=== PATIENT | female | born 1985 | race African-American/Black ===

== ENCOUNTER 2021-11-19 14:30 | Inpatient (IN) ==
[2021-11-19 14:35] VITALS: BMI 34.4
--- NOTE | 2021-11-19 15:27 | DR.URIAD ---
HPI Time Seen Time Seen by Provider: 11/19/21 15:12 PCP Primary Care Physician: KEVIN HPI Comment HPI Comment: PATIENT IS 35YR OLD FEMALE IN ER WITH FEVER, COUGH, CONGESTION, BODYACHES, SORE THROAT CHILLS FOR 2 DAYS. WORSE TODAY. PATIENT IS WEAK AND FATI LEONID. HAVING 8/10 GENERALIZED PAIN. Complaint Chief Complaint Doctors Comments: FEVER, COUGH, CHILLS, CONGESTION, SORE THROAT AND BODYACHES TIMES 2 DAYS. Chief Complaint:: PT C/O HEADACHE, BODYACHES, FEVER, COUGH, & CHILLS X2 DAYS. COVID-19 Coronavirus risk:travel/contact w/high risk person: No Has patient experienced Coronavirus symptoms: No Reviewed Nurses Notes Reviewed: Yes Source History Provided: Patient Mode of Arrival Mode of Arrival: Ambulatory Timing Onset of Chief Complaint: 11/17/21 Context Recent Treated Infections: None History of Respiratory: None Quality Quality of Cough: Productive and Yellow Rhinorrhea: Clear Shortness of Breath: Moderate Associated Signs and Symptoms Other Signs and Symptoms: Chills, Cough, Fever, Myalgias, Nasal Symptoms, Shortness of Breath, Sore Throat and URI Other History Other History: HTN. PMH PMH Past Medical History: Yes Past Medical History: Hypertension Past Surgical History: Yes Surgical History: Other Family History History of Family Medical Conditions: Yes Family Medical History: Hypertension Social History Do you use any recreational Drugs:: No Travel Risk Coronavirus risk:travel/contact w/high risk person: No Has patient experienced Coronavirus symptoms: No Infectious screening Have you traveled outside the country in the last 6 months?: No Isolation: Droplet ROS Review of Systems Constitutional: See HPI, Fever, Weakness and Fatigue Eyes: No Symptoms Reported and See HPI ENTM: See HPI, Nose Discharge, Nose Congestion and Throat Pain Respiratoy: See HPI, Moist Cough and Short of Breath; negative Wheezing Cardiovascular: No Symptoms Reported and See HPI; negative Chest Pain Gastrointestinal/Abdominal: No Symptoms Reported and See HPI; negative Abdominal Pain, Diarrhea and Vomiting Genitourinary: No Symptoms Reported and See HPI; negative Dysuria, Frequency and Hematuria Neurological: See HPI, Headache and Weakness; negative Dizziness Musculoskeletal: See HPI and Muscle Pain Integumentary: No Symptoms Reported and See HPI; negative Rash and Juandice Hematologic/Lymphatic: No Symptoms Reported and See HPI; negative Easy Bruising Endocrine: No Symptoms Reported and See HPI; negative Increased Thirst and Increased Urine Psychiatric: No Symptoms Reported and See HPI All Other Systems: Reviewed and Negative PE Vital Signs Vitals: Temperature 98.5 F Pulse Rate 87 Respiratory Rate 19 Blood Pressure 216/103 O2 Sat by Pulse Oximetry 99 General Limitations: No Limitations General Appearance: Alert and In No Apparent Distress Head Head Exam: Normal Inspection Eyes Eye exam: Normal Appearance; negative Scleral Icterus and Conjunctival Injection ENT ENT Exam: Normal Exam External Ear Exam: Normal External Inspection TM/Canal Exam: Bilateral: Normal Nose Exam: Normal Nose Exam Nasal Speculum Exam: Bilateral: Normal Mouth Exam: Normal Inspection Throat Exam: Normal Inspection Neck Neck Exam: Normal Inspection and Trachea Midline; negative Tenderness Chest Chest Inspection: Normal Inspection and Symmetric Chest Wall Rise; negative T enderness Respiratory Respiratory Exam: Normal Lung Sounds Bilat; negative Accessory Muscle Use, Chest Wall Tenderness and Respiratory Distress Respiratory Exam: Bilateral: Rhonchi and Lower: Rhonchi Cardiovascular Cardiovascular Exam: Regular Rate, Normal Rhythm and Normal Heart Sounds; negat gita Systolic Murmur and Diastolic Murmur Abdominal Exam Abdominal Exam: Normal Inspection, Normal Bowel Sounds and Soft; negative Tenderness Extremeties Extremities Exam: Normal Inspection; negative Normal Capillary Refill Back Back Exam: Normal Inspection; negative (R) CVA Tenderness and (L) CVA Tenderness Neurologic Neurological Exam: Alert and Oriented X3; negative CN II-XII Intact and Motor Sensory Deficit Psychiatric Psychiatric Exam: Normal Affect and Normal Mood Skin Skin Exam: Warm, Dry, Intact and Normal Color MDM Differential Diagnosis Differential Diagnosis: Influenza A, Influenza B, Otitis media, Streptococcal pharyngitis, Viral pharyngitis, Pneumonia, Sinsusitis and URI COURSE Treatment Treatment: SEE ORDERS. Consultation Consultation Comments: DISCUSSED PATIENT WITH DR. GENAO. HE WILL ADMIT PATIENT. Education/Counseling Education/Counseling: Patient and Family ROR Labs Reviewed Laboratory Results Reviewed?: Yes Result Diagrams: 11/20/21 07:56 11/20/21 07:56 Laboratory: WBC 6.6 X10^3/uL (3.6-10.0) 11/19/21 15:49 RBC 2.91 X10^6/uL (3.5-5.4) L 11/19/21 15:49 Hgb 6.2 g/dL (12.0-16.0) L* 11/19/21 15:49 Hct 20.1 % (36.0-47.0) L 11/19/21 15:49 MCV 69.2 fL (80.0-100.0) L 11/19/21 15:49 MCH 21.4 pg (27.0-34.0) L 11/19/21 15:49 MCHC 30.9 g/dL (33.0-35.0) L 11/19/21 15:49 RDW 35.2 % (11.6-16.5) H 11/19/21 15:49 Plt Count 337 X10^3/uL (150.0-450.0) 11/19/21 15:49 Plt Count Comment Adequate (ADEQUATE) 11/19/21 15:49 MPV 8.4 fL (7.4-11.0) 11/19/21 15:49 Neut % (Auto) 55.4 % (42.0-75.0) 11/19/21 15:49 Lymph % (Auto) 35.5 % (21.0-51.0) 11/19/21 15:49 Motley % (Auto) 7.2 % (0.0-13.0) 11/19/21 15:49 Eos % (Auto) 1.3 % (0.9-2.9) 11/19/21 15:49 Baso % (Auto) 0.6 % (0.2-1.0) 11/19/21 15:49 Neut # (Auto) 3.7 x10^3/uL (2.2-4.8) 11/19/21 15:49 Lymph # (Auto) 2.4 X10^3/uL (1.3-2.9) 11/19/21 15:49 Motley # (Auto) 0.5 x10^3/uL (0.3-0.8) 11/19/21 15:49 Eos # (Auto) 0.1 x10^3/uL (0.0-0.2) 11/19/21 15:49 Baso # (Auto) 0.0 X10^3/uL (0.0-0.1) 11/19/21 15:49 Absolute Nucleated RBC 0.2 /100WBC 11/19/21 15:49 Plt Morphology Comment Normal (NORMAL) 11/19/21 15:49 RBC Morphology Abnormal (NORMAL) A 11/19/21 15:49 Anisocytosis 3+ A 11/19/21 15:49 Microcytosis 1+ A 11/19/21 15:49 Sodium 141 mmol/L (136-145) 11/19/21 15:49 Corrected Sodium TNP 11/19/21 15:49 Potassium 4.2 mmol/L (3.5-5.1) 11/19/21 15:49 Chloride 106 mmol/L (98-107) 11/19/21 15:49 Carbon Dioxide 27.9 mmol/L (21-32) 11/19/21 15:49 BUN 12 mg/dL (7-18) 11/19/21 15:49 Creatinine 0.79 mg/dL (0.55-1.02) 11/19/21 15:49 Est GFR (MDRD) Af Amer > 60 (>60) 11/19/21 15:49 Est GFR (MDRD) Non-Af > 60 (>60) 11/19/21 15:49 Glucose 110 mg/dL (65-99) H 11/19/21 15:49 Calcium 8.5 mg/dL (8.5-10.1) 11/19/21 15:49 Corrected Calcium 9.2 mg/dL (8.5-10.1) 11/19/21 15:49 Iron 13 ug/dL (50-175) L 11/19/21 16:08 Transferrin 314 mg/dL (202-364) 11/19/21 16:08 Ferritin 5 ng/mL (8-252) L 11/19/21 16:08 Total Bilirubin 0.10 mg/dL (0.2-1.0) L 11/19/21 15:49 AST 19 Units/L (15-37) 11/19/21 15:49 ALT 11 Units/L (12-78) L 11/19/21 15:49 Alkaline Phosphatase 54 Units/L (46-116) 11/19/21 15:49 Total Protein 7.4 g/dL (6.4-8.2) 11/19/21 15:49 Albumin 3.1 g/dL (3.4-5.0) L 11/19/21 15:49 Globulin 4.3 g/dL (2.5-4.5) 11/19/21 15:49 Albumin/Globulin Ratio 0.7 Ratio (1.1-2.1) L 11/19/21 15:49 Vitamin B12 459 pg/mL (193-986) 11/19/21 16:08 Folate 6.9 ng/mL (>8.6) L 11/19/21 16:08 SARS-CoV-2 (PCR) Positive (NEGATIVE) A 11/19/21 15:48 Influenza Type A (PCR) Negative (NEGATIVE) 11/19/21 15:48 Influenza Type B (PCR) Negative (NEGATIVE) 11/19/21 15:48 RSV (PCR) Negative (NEGATIVE) 11/19/21 15:48 S. pyogenes (TEM-PCR) Not detected (NOT DETECT) 11/19/21 15:48 Blood Type A POSITIVE 11/19/21 16:08 Antibody Screen Negative 11/19/21 16:08 Crossmatch See Detail 11/19/21 16:08 XRAY XRAY Interpreted by: Radiologist (REPORT NOTED AND DISCUSSED WITH PATIENT.) and Self Opioid Opioid Risk Tool Age (Mikel box if 16-45): Yes History of Preadolescent Sexual Abuse: No Total: 1 Total Score Risk Category: Low Risk Copyright: Walker UNDERWOOD predicting aberrant behaviors Diagnosis Discharge Problem: COVID-19 virus infection Anemia Qualifiers: Anemia type: unspecified type Qualified Code(s): D64.9 - Anemia, unspecified
[2021-11-19 15:59] LABS: EOSINOPHILS # (AUTO) 0.1 x10^3/uL (0.0-0.2); LYMPHOCYTES # (AUTO) 2.4 X10^3/uL (1.3-2.9); MEAN CORPUSCULAR VOLUME 69.2 fL (80.0-100.0)
[2021-11-19 16:11] LABS: ALANINE AMINOTRANSFERASE 11 Units/L (12-78); ALBUMIN 3.1 g/dL (3.4-5.0); ALKALINE PHOSPHATASE 54 Units/L (46-116); ASPARTATE AMINO TRANSFERASE 19 Units/L (15-37); BLOOD UREA NITROGEN 12 mg/dL (7-18); CALCIUM 8.5 mg/dL (8.5-10.1); CARBON DIOXIDE 27.9 mmol/L (21-32); CHLORIDE 106 mmol/L (98-107); COR CA(FOR HYPOALB) 9.2 mg/dL (8.5-10.1); CREATININE 0.79 mg/dL (0.55-1.02); SODIUM 141 mmol/L (136-145); TOTAL PROTEIN 7.4 g/dL (6.4-8.2); eGFR NON BLACK RACES > 60 (>60)
[2021-11-19 16:16] LABS: BASOPHILS % (AUTO) 0.6 % (0.2-1.0); EOSINOPHILS % (AUTO) 1.3 % (0.9-2.9); HEMATOCRIT 20.1 % (36.0-47.0); LYMPHOCYTES % (AUTO) 35.5 % (21.0-51.0); MEAN CORPUSCULAR HEMOGLOBIN 21.4 pg (27.0-34.0); MEAN CORPUSCULAR HGB CONC 30.9 g/dL (33.0-35.0); MEAN PLATELET VOLUME 8.4 fL (7.4-11.0); MONOCYTES # (AUTO) 0.5 x10^3/uL (0.3-0.8); MONOCYTES % (AUTO) 7.2 % (0.0-13.0); NEUTROPHILS # (AUTO) 3.7 x10^3/uL (2.2-4.8); NEUTROPHILS % (AUTO) 55.4 % (42.0-75.0); PLATELET COUNT 337 X10^3/uL (150.0-450.0); RED BLOOD COUNT 2.91 X10^6/uL (3.5-5.4); RED CELL DISTRIBUTION WIDTH 35.2 % (11.6-16.5); WHITE BLOOD COUNT 6.6 X10^3/uL (3.6-10.0)
[2021-11-19 16:25] LABS: STREP A BY PCR NOT DETECTED (NOT DETECT)
[2021-11-19 16:29] LABS: HEMOGLOBIN 6.2 g/dL (12.0-16.0)
[2021-11-19 16:30] LABS: ANISOCYTOSIS 3+; MICROCYTOSIS 1+; PLATELET MORPHOLOGY COMMENT NORMAL (NORMAL)
--- NOTE | 2021-11-19 16:52 | RAD ---
HISTORYHA, COUGH, FEVER, CHILLS Relevant Clinical InformationSTUDYCHEST, 1 VIEWCOMPARISONNone availableFINDINGSThe trachea is midline. There is moderate cardiomegaly. There is no evidence of pleural effusions or pneumothorax. No dominant alveolar radiopacities. There is attenuation of the left base by soft tissue.IMPRESSIONNo acute cardiopulmonary findings .Electronically signed by: Roberta Remy (Nov 19, 2021 16:50:09)
[2021-11-19] MEDS ORDERED: ZITHROMAX TAB 250 MG PO ONE (17:53)
[2021-11-19] MEDS ORDERED: ROCEPHIN 1 GRAM IV PREMIX 1 G/50 ML IV.SOLN. IV ONE (17:54)
[2021-11-19] MEDS: ZITHROMAX TAB 250 MG PO SCH (18:01)
[2021-11-19] MEDS: ROCEPHIN 1 GRAM IV PREMIX 1 G/50 ML IV.SOLN. IV SCH (18:01)
[2021-11-19 20:03] LABS: BASOPHILS # (AUTO) 0.1 X10^3/uL (0.0-0.1); EOSINOPHILS # (AUTO) 0.1 x10^3/uL (0.0-0.2); EOSINOPHILS % (AUTO) 1.4 % (0.9-2.9); MEAN CORPUSCULAR HEMOGLOBIN 21.2 pg (27.0-34.0); MEAN CORPUSCULAR VOLUME 69.4 fL (80.0-100.0); MONOCYTES # (AUTO) 0.4 x10^3/uL (0.3-0.8); MONOCYTES % (AUTO) 5.1 % (0.0-13.0); RED BLOOD COUNT 2.88 X10^6/uL (3.5-5.4)
[2021-11-19 20:07] LABS: BASOPHILS % (AUTO) 1.1 % (0.2-1.0); LYMPHOCYTES # (AUTO) 2.7 X10^3/uL (1.3-2.9); LYMPHOCYTES % (AUTO) 34.3 % (21.0-51.0); MEAN CORPUSCULAR HGB CONC 30.5 g/dL (33.0-35.0); NEUTROPHILS # (AUTO) 4.6 x10^3/uL (2.2-4.8); NEUTROPHILS % (AUTO) 58.1 % (42.0-75.0); PLATELET COUNT 351 X10^3/uL (150.0-450.0); RED CELL DISTRIBUTION WIDTH 34.7 % (11.6-16.5); WHITE BLOOD COUNT 7.9 X10^3/uL (3.6-10.0)
[2021-11-19] MEDS ORDERED: NS 100 ML IV 100 ML ONE (20:12)
[2021-11-19] MEDS: NS 1,000 ML IV 1,000 ML IV SCH (20:16)
[2021-11-19] MEDS: PEPCID TAB 40 MG PO SCH (20:16)
[2021-11-19] MEDS: ASCORBIC ACID INJ MULTI-DOSE VIAL 1,500 MG in NS 100 ML IV 100 ML IV SCH (20:16)
[2021-11-19] MEDS: ZINC SULFATE PO SCH (20:17)
[2021-11-19] MEDS: BROVANA IN SCH (20:22)
[2021-11-19] MEDS: PULMICORT NEB TX 0.5 MG NEB SCH (20:22)
[2021-11-19 20:23] LABS: ALANINE AMINOTRANSFERASE 9 Units/L (12-78); ALBUMIN 3.1 g/dL (3.4-5.0); ALKALINE PHOSPHATASE 53 Units/L (46-116); ASPARTATE AMINO TRANSFERASE 12 Units/L (15-37); BLOOD UREA NITROGEN 11 mg/dL (7-18); CALCIUM 8.5 mg/dL (8.5-10.1); CARBON DIOXIDE 28.1 mmol/L (21-32); CHLORIDE 103 mmol/L (98-107); COR CA(FOR HYPOALB) 9.2 mg/dL (8.5-10.1); CREATININE 0.78 mg/dL (0.55-1.02); SODIUM 139 mmol/L (136-145); TOTAL PROTEIN 7.5 g/dL (6.4-8.2); eGFR NON BLACK RACES > 60 (>60)
[2021-11-19 20:29] LABS: HEMOGLOBIN 6.1 g/dL (12.0-16.0)
[2021-11-19 20:30] LABS: PLATELET MORPHOLOGY COMMENT NORMAL (NORMAL)
[2021-11-19 20:31] LABS: ANISOCYTOSIS 3+; HYPOCHROMASIA 2+; MICROCYTOSIS 1+
[2021-11-19] MEDS: NORMODYNE INJ 20 MG VIAL IV PRN ×4 (20:33→23:00)
[2021-11-19] MEDS ORDERED: RESTORIL CAP 15 MG PO PRN (22:18)
[2021-11-19] MEDS ORDERED: CATAPRES TAB 0.2 MG PO ONE (23:44)
[2021-11-20] MEDS: NORMODYNE INJ 20 MG VIAL IV PRN (00:20)
[2021-11-20] MEDS: ASCORBIC ACID INJ MULTI-DOSE VIAL 1,500 MG in NS 100 ML IV 100 ML IV SCH ×4 (03:03→20:49)
[2021-11-20] MEDS: ULTRAM PO PRN ×3 (05:00→20:55)
[2021-11-20] MEDS: CATAPRES TAB 0.2 MG PO SCH ×3 (05:17→21:52)
[2021-11-20] MEDS ORDERED: CATAPRES TAB 0.2 MG PO SCH (06:00)
[2021-11-20 08:20] LABS: BASOPHILS # (AUTO) 0.1 X10^3/uL (0.0-0.1); BASOPHILS % (AUTO) 1.5 % (0.2-1.0); EOSINOPHILS # (AUTO) 0.1 x10^3/uL (0.0-0.2); EOSINOPHILS % (AUTO) 2.3 % (0.9-2.9); LYMPHOCYTES # (AUTO) 1.6 X10^3/uL (1.3-2.9); LYMPHOCYTES % (AUTO) 26.8 % (21.0-51.0); MEAN CORPUSCULAR HGB CONC 31.7 g/dL (33.0-35.0); MEAN CORPUSCULAR VOLUME 72.5 fL (80.0-100.0); MEAN PLATELET VOLUME 8.8 fL (7.4-11.0); MONOCYTES # (AUTO) 0.5 x10^3/uL (0.3-0.8); MONOCYTES % (AUTO) 7.6 % (0.0-13.0); NEUTROPHILS # (AUTO) 3.8 x10^3/uL (2.2-4.8); NEUTROPHILS % (AUTO) 61.8 % (42.0-75.0); PLATELET COUNT 337 X10^3/uL (150.0-450.0); RED BLOOD COUNT 3.03 X10^6/uL (3.5-5.4); RED CELL DISTRIBUTION WIDTH 33.7 % (11.6-16.5); WHITE BLOOD COUNT 6.1 X10^3/uL (3.6-10.0)
[2021-11-20 08:31] LABS: ALANINE AMINOTRANSFERASE 8 Units/L (12-78); ALBUMIN 2.9 g/dL (3.4-5.0); ALKALINE PHOSPHATASE 46 Units/L (46-116); ASPARTATE AMINO TRANSFERASE 10 Units/L (15-37); BLOOD UREA NITROGEN 8 mg/dL (7-18); CALCIUM 8.2 mg/dL (8.5-10.1); CARBON DIOXIDE 27.5 mmol/L (21-32); CHLORIDE 104 mmol/L (98-107); COR CA(FOR HYPOALB) 9.1 mg/dL (8.5-10.1); CREATININE 0.69 mg/dL (0.55-1.02); SODIUM 143 mmol/L (136-145); TOTAL PROTEIN 6.8 g/dL (6.4-8.2); eGFR NON BLACK RACES > 60 (>60)
[2021-11-20] MEDS: PEPCID TAB 40 MG PO SCH ×2 (08:38→20:46)
[2021-11-20] MEDS: ROCEPHIN 1 GRAM IV PREMIX 1 G/50 ML IV.SOLN. IV SCH (08:38)
[2021-11-20] MEDS: ZINC SULFATE PO SCH ×2 (08:39→20:46)
[2021-11-20] MEDS: ZITHROMAX TAB 250 MG PO SCH (08:39)
[2021-11-20] MEDS ORDERED: VITAMIN A PO SCH (09:00)
[2021-11-20] MEDS ORDERED: VITAMIN D (1.25MG) PO SCH (09:00)
[2021-11-20 09:07] LABS: ANISOCYTOSIS 3+; HYPOCHROMASIA 1+; MICROCYTOSIS SLIGHT; PLATELET MORPHOLOGY COMMENT NORMAL (NORMAL)
[2021-11-20] MEDS: BROVANA IN SCH ×2 (09:14→21:00)
[2021-11-20] MEDS: PULMICORT NEB TX 0.5 MG NEB SCH ×2 (09:14→21:00)
[2021-11-20] MEDS ORDERED: NORVASC TAB 5 MG PO PRN (10:08)
[2021-11-20] MEDS: ZESTRIL TAB 40 MG PO SCH (10:45)
[2021-11-21] MEDS: NS 1,000 ML IV 1,000 ML IV SCH ×2 (02:10→23:07)
[2021-11-21] MEDS: ASCORBIC ACID INJ MULTI-DOSE VIAL 1,500 MG in NS 100 ML IV 100 ML IV SCH ×4 (02:35→21:14)
[2021-11-21] MEDS ORDERED: INJECTAFER 750 MG in NS 250 ML IV 250 ML IV NR ×2 (02:52→09:00)
--- NOTE | 2021-11-21 02:59 | DR.H&P ---
H&P - History & Physical for Day of: H&P Date: 11/19/21 - Chief Complaint Chief Complaint: weakness - History of Present Illness History of Present Illness: Patient is a 35 year old AAF who is being admitted due to acute anemia, COVID, and HTN. Patient has a PMH of HTN. Blood pressure has been very high since arriving to hospital. Patient reports symptoms include fatigue, weakness, cough, congestion, dyspnea, fever chills. Patient denies CP or any other symptoms. Patient is also anemic. Patient did report heavey menstrual cycles how ever she reports changing pads/tampons once every 2-3 hours; states she does not bleed through, states cycle is oce a month and only for 3 days; ie this is a normal cycle and not heavy bleeding. Patient also states she is not currently on her cycle presently and has not been on it in the past 2 weeks. Beton deneis vomiting blood or passing blood from anywhere. Patient is iron deficient. No other concerns at present. - Past Medical History Past Medical History: Hypertension - Past Surgical History Surgical History: Other - Family History Family Medical History: Hypertension - Social History Does patient currently use any type of tobacco product: Yes Have you used tobacco products in the last 12 months: Yes Type of Tobacco Use: Cigarettes Alcohol Use: None Drug Use: None - Medications Home Medications: No Known Drug Allergies Allergy (Verified 08/19/20 13:13) CONTINUE taking the following medications clonidine HCl 0.1 mg PO BID 11/20/21 [History] lisinopril 20 mg PO DAILY 11/20/21 [History] - Review of Systems Constitutional: See HPI Eyes: See HPI ENT: See HPI Respiratory: See HPI Cardiovascular: See HPI Gastrointestinal: See HPI Genitourinary: See HPI Musculoskeletal: See HPI Skin: See HPI Neurological: See HPI - Physical Exam Vital Signs: Temperature 97.6 F Pulse Rate [Radial] 76 Pulse Rate 66 Respiratory Rate 18 Blood Pressure [Left Arm] 199/93 Blood Pressure 161/78 O2 Sat by Pulse Oximetry 96 Oriented: Normal, Time, Person, Place Eyes: Normal Ear: Normal Nose: Normal Throat: Normal Respiratory: Diminished Throughout Cardiovascular: Normal : Normal Auscultation: Bowel Sounds: Normal Palpation: Normal Tenderness: Normal Skin: Normal Musculoskeletal: Normal Psychiatric: Normal Mood Description: Calm Affect: Normal Speech Pattern: Clear, Appropriate - Assessment/Plan (1) Hypertension Qualifiers: Hypertension type: essential hypertension Qualified Code(s): I10 - Essential (primary) hypertension Status: Acute Plan: Resume home meds. Clonidine prn (2) Morbid obesity Status: Acute (3) Anemia Qualifiers: Anemia type: unspecified type Qualified Code(s): D64.9 - Anemia, unspecified Status: Acute Plan: Trensfuse 2 unit PRBCs. Patient has antibodies therefore blood has been ordered. Trend labs (4) COVID-19 virus infection Status: Acute Plan: supplemental oxygen prn. trend labs, abg prn and cxr prn. Recent chest clear and abg not performed due to patient tolerating room air oxygen. IV abx and steroids. Duo nebs. Cultures pending (5) Iron (Fe) deficiency anemia Status: Acute Plan: Injectafer - Allergies Allergies/Adverse Reactions: Allergies Allergy/AdvReac Type Severity Reaction Status Date / Time No Known Drug Allergies Allergy Verified 08/19/20 13:13
--- NOTE | 2021-11-21 03:14 | PCM.PROG ---
Progress Note - Progress Note for Day of Date of Exam: 11/20/21 - Subjective Subjective: Patient is a 35 year old female who was admitted due anemia, COVID. Injectafer ordered due to SAL. Helgaetn is pending ordered blood due to antibodies. Patient is tolerating oxygen at room air. Patient continues to be treated with IV abx and steroids. No major changes from pevious. - Past Medical Family Social History Allergies: Allergies No Known Drug Allergies Allergy (Verified 08/19/20 13:13) - Review of Systems ROS: No change since H&P - Vital Signs and I&O's Vital Signs: Temperature 97.6 F Pulse Rate [Radial] 76 Pulse Rate 66 Respiratory Rate 18 Blood Pressure [Left Arm] 199/93 Blood Pressure 161/78 O2 Sat by Pulse Oximetry 96 Intake and Output: Intake & Output 11/18/21 11/19/21 11/20/21 11/21/21 23:59 23:59 23:59 23:59 Intake Total 880 / 880 2853 / 2853 Balance 880 / 880 2853 / 2853 - Physical Exam Oriented: Normal, Time, Person, Place Eyes: Normal Ear: Normal Nose: Normal Throat: Normal Respiratory: Diminished (diminished in bases due to body habitus/obesity) Cardiovascular: Normal : Normal Auscultation: Bowel Sounds: Normal Palpation: Normal Tenderness: Normal Skin: Normal Musculoskeletal: Normal Psychiatric: Normal Mood Description: Calm Affect: Normal Speech Pattern: Clear, Appropriate - Laboratory and Diagnostics Result Diagrams: 11/20/21 07:56 11/20/21 07:56 Labs: Laboratory WBC 6.1 X10^3/uL (3.6-10.0) 11/20/21 07:56 RBC 3.03 X10^6/uL (3.5-5.4) L 11/20/21 07:56 Hgb 7.0 g/dL (12.0-16.0) L 11/20/21 07:56 Hct 22.0 % (36.0-47.0) L 11/20/21 07:56 MCV 72.5 fL (80.0-100.0) L 11/20/21 07:56 MCH 23.0 pg (27.0-34.0) L 11/20/21 07:56 MCHC 31.7 g/dL (33.0-35.0) L 11/20/21 07:56 RDW 33.7 % (11.6-16.5) H 11/20/21 07:56 Plt Count 337 X10^3/uL (150.0-450.0) 11/20/21 07:56 Plt Count Comment Adequate (ADEQUATE) 11/20/21 07:56 MPV 8.8 fL (7.4-11.0) 11/20/21 07:56 Neut % (Auto) 61.8 % (42.0-75.0) 11/20/21 07:56 Lymph % (Auto) 26.8 % (21.0-51.0) 11/20/21 07:56 Morrill % (Auto) 7.6 % (0.0-13.0) 11/20/21 07:56 Eos % (Auto) 2.3 % (0.9-2.9) 11/20/21 07:56 Baso % (Auto) 1.5 % (0.2-1.0) H 11/20/21 07:56 Neut # (Auto) 3.8 x10^3/uL (2.2-4.8) 11/20/21 07:56 Lymph # (Auto) 1.6 X10^3/uL (1.3-2.9) 11/20/21 07:56 Morrill # (Auto) 0.5 x10^3/uL (0.3-0.8) 11/20/21 07:56 Eos # (Auto) 0.1 x10^3/uL (0.0-0.2) 11/20/21 07:56 Baso # (Auto) 0.1 X10^3/uL (0.0-0.1) 11/20/21 07:56 Absolute Nucleated RBC 0.0 /100WBC 11/20/21 07:56 Plt Morphology Comment Normal (NORMAL) 11/20/21 07:56 RBC Morphology Abnormal (NORMAL) A 11/20/21 07:56 Hypochromasia 1+ A 11/20/21 07:56 Anisocytosis 3+ A 11/20/21 07:56 Microcytosis Slight A 11/20/21 07:56 Macrocytosis 11/20/21 07:56 Sodium 143 mmol/L (136-145) 11/20/21 07:56 Corrected Sodium TNP 11/20/21 07:56 Potassium 4.1 mmol/L (3.5-5.1) 11/20/21 07:56 Chloride 104 mmol/L (98-107) 11/20/21 07:56 Carbon Dioxide 27.5 mmol/L (21-32) 11/20/21 07:56 BUN 8 mg/dL (7-18) 11/20/21 07:56 Creatinine 0.69 mg/dL (0.55-1.02) 11/20/21 07:56 Est GFR (MDRD) Af Amer > 60 (>60) 11/20/21 07:56 Est GFR (MDRD) Non-Af > 60 (>60) 11/20/21 07:56 Glucose 108 mg/dL (65-99) H 11/20/21 07:56 Calcium 8.2 mg/dL (8.5-10.1) L 11/20/21 07:56 Corrected Calcium 9.1 mg/dL (8.5-10.1) 11/20/21 07:56 Iron 13 ug/dL (50-175) L 11/19/21 16:08 Transferrin 314 mg/dL (202-364) 11/19/21 16:08 Ferritin 5 ng/mL (8-252) L 11/19/21 16:08 Total Bilirubin 0.70 mg/dL (0.2-1.0) 11/20/21 07:56 AST 10 Units/L (15-37) L 11/20/21 07:56 ALT 8 Units/L (12-78) L 11/20/21 07:56 Alkaline Phosphatase 46 Units/L (46-116) 11/20/21 07:56 Total Protein 6.8 g/dL (6.4-8.2) 11/20/21 07:56 Albumin 2.9 g/dL (3.4-5.0) L 11/20/21 07:56 Globulin 3.9 g/dL (2.5-4.5) 11/20/21 07:56 Albumin/Globulin Ratio 0.7 Ratio (1.1-2.1) L 11/20/21 07:56 Vitamin B12 459 pg/mL (193-986) 11/19/21 16:08 Folate 6.9 ng/mL (>8.6) L 11/19/21 16:08 SARS-CoV-2 (PCR) Positive (NEGATIVE) A 11/19/21 15:48 Influenza Type A (PCR) Negative (NEGATIVE) 11/19/21 15:48 Influenza Type B (PCR) Negative (NEGATIVE) 11/19/21 15:48 RSV (PCR) Negative (NEGATIVE) 11/19/21 15:48 S. pyogenes (TEM-PCR) Not detected (NOT DETECT) 11/19/21 15:48 Blood Type A POSITIVE 11/19/21 16:08 Antibody Screen Negative 11/19/21 16:08 Crossmatch See Detail 11/19/21 16:08 - Plan (1) Hypertension Status: Acute Qualifiers: Hypertension type: essential hypertension Qualified Code(s): I10 - Essential (primary) hypertension Plan: Resume home meds. Clonidine prn (2) Morbid obesity Status: Acute (3) Anemia Status: Acute Qualifiers: Anemia type: unspecified type Qualified Code(s): D64.9 - Anemia, unspecified Plan: Trensfuse 2 unit PRBCs. Patient has antibodies therefore blood has been ordered. Trend labs (4) COVID-19 virus infection Status: Acute Plan: supplemental oxygen prn. trend labs, abg prn and cxr prn. Recent chest clear and abg not performed due to patient tolerating room air oxygen. IV abx and steroids. Duo nebs. Cultures pending (5) Iron (Fe) deficiency anemia Status: Acute Plan: Injectafer
[2021-11-21] MEDS: CATAPRES TAB 0.2 MG PO SCH ×3 (05:05→21:15)
[2021-11-21 05:13] LABS: ALANINE AMINOTRANSFERASE 9 Units/L (12-78); ALBUMIN 2.8 g/dL (3.4-5.0); ALKALINE PHOSPHATASE 47 Units/L (46-116); ASPARTATE AMINO TRANSFERASE 10 Units/L (15-37); BLOOD UREA NITROGEN 7 mg/dL (7-18); CALCIUM 8.3 mg/dL (8.5-10.1); CARBON DIOXIDE 26.8 mmol/L (21-32); CHLORIDE 106 mmol/L (98-107); COR CA(FOR HYPOALB) 9.3 mg/dL (8.5-10.1); CREATININE 0.64 mg/dL (0.55-1.02); SODIUM 142 mmol/L (136-145); TOTAL PROTEIN 6.8 g/dL (6.4-8.2); eGFR NON BLACK RACES > 60 (>60)
[2021-11-21 05:20] LABS: BASOPHILS # (AUTO) 0.1 X10^3/uL (0.0-0.1); BASOPHILS % (AUTO) 0.7 % (0.2-1.0); EOSINOPHILS # (AUTO) 0.1 x10^3/uL (0.0-0.2); EOSINOPHILS % (AUTO) 1.4 % (0.9-2.9); HEMATOCRIT 21.8 % (36.0-47.0); LYMPHOCYTES # (AUTO) 2.1 X10^3/uL (1.3-2.9); LYMPHOCYTES % (AUTO) 27.2 % (21.0-51.0); MEAN CORPUSCULAR HEMOGLOBIN 23.3 pg (27.0-34.0); MEAN CORPUSCULAR HGB CONC 31.8 g/dL (33.0-35.0); MEAN CORPUSCULAR VOLUME 73.2 fL (80.0-100.0); MEAN PLATELET VOLUME 9.1 fL (7.4-11.0); MONOCYTES # (AUTO) 0.4 x10^3/uL (0.3-0.8); MONOCYTES % (AUTO) 5.2 % (0.0-13.0); NEUTROPHILS # (AUTO) 5.2 x10^3/uL (2.2-4.8); NEUTROPHILS % (AUTO) 65.5 % (42.0-75.0); PLATELET COUNT 321 X10^3/uL (150.0-450.0); RED BLOOD COUNT 2.98 X10^6/uL (3.5-5.4); RED CELL DISTRIBUTION WIDTH 33.8 % (11.6-16.5); WHITE BLOOD COUNT 7.9 X10^3/uL (3.6-10.0)
[2021-11-21 06:00] LABS: HEMOGLOBIN 6.9 g/dL (12.0-16.0)
[2021-11-21 06:01] LABS: ANISOCYTOSIS 3+; HYPOCHROMASIA 2+; MICROCYTOSIS SLIGHT; OVALOCYTES PRESENT; PLATELET MORPHOLOGY COMMENT NORMAL (NORMAL); STOMATOCYTES PRESENT
[2021-11-21] MEDS ORDERED: CATAPRES TAB 0.1 MG PO SCH (09:00)
[2021-11-21] MEDS ORDERED: ZESTRIL TAB 20 MG PO SCH (09:00)
[2021-11-21] MEDS: BROVANA IN SCH ×2 (09:10→20:40)
[2021-11-21] MEDS: PULMICORT NEB TX 0.5 MG NEB SCH ×2 (09:10→20:40)
[2021-11-21] MEDS: ROCEPHIN 1 GRAM IV PREMIX 1 G/50 ML IV.SOLN. IV SCH (09:15)
[2021-11-21] MEDS: VITAMIN A PO SCH (09:15)
[2021-11-21] MEDS: PEPCID TAB 40 MG PO SCH ×2 (09:15→21:14)
[2021-11-21] MEDS: VITAMIN D3 125 mcg (5,000 UNITS) PO SCH (09:15)
[2021-11-21] MEDS: ZESTRIL TAB 40 MG PO SCH (09:16)
[2021-11-21] MEDS: ZITHROMAX TAB 250 MG PO SCH (09:16)
[2021-11-21] MEDS: ZINC SULFATE PO SCH ×2 (09:16→21:15)
[2021-11-21] MEDS ORDERED: TOPROL XL PO ONE (14:07)
--- NOTE | 2021-11-21 20:57 | DR.CONSULT ---
CONSULT Consultation for Day of: Date: 11/20/21 Chief Complaint Chief Complaint: Overall weakness. Allergies Allergies Allergy/AdvReac Type Severity Reaction Status Date / Time No Known Drug Allergies Allergy Verified 08/19/20 13:13 History of Present Illness History of Present Illness: 35 year old female with history of hypertension who presented to the emergency room complaining of fatigue and weakness. Admission hemoglobin was 6. 1. No history of Melena or Hemetemasis. She has received two units of packed red blood cells. She gives a history of heavy menstrual cycles but has noted that they have been only for 3 days and have been regular in frequency. Past Medical History Past Medical History: Hypertension Past Surgical History Surgical History: Other Family History Family Medical History: Hypertension Social History Does patient currently use any type of tobacco product: Yes Have you used tobacco products in the last 12 months: Yes Type of Tobacco Use: Cigarettes Alcohol Use: None Drug Use: None Medications Home Medications: No Known Drug Allergies Allergy (Verified 08/19/20 13:13) CONTINUE taking the following medications clonidine HCl 0.1 mg PO BID 11/20/21 [History] lisinopril 20 mg PO DAILY 11/20/21 [History] Physical Exam Vital Signs: Temperature 97.8 F Pulse Rate [Radial] 76 Pulse Rate 65 Respiratory Rate 28 Blood Pressure [Left Arm] 199/93 Blood Pressure 179/86 O2 Sat by Pulse Oximetry 99 Oriented: Normal, Time, Person and Place Eyes: Normal Ear: Normal Nose: Normal Throat: Normal Respiratory: Clear Throughout Cardiovascular: Normal : Normal Auscultation: Bowel Sounds: Normal Palpation: Normal Tenderness: Normal Skin: Normal Musculoskeletal: Normal Psychiatric: Normal Mood Description: Calm Speech Pattern: Clear Plan (1) Hypertension: Status: Acute Qualifiers: Hypertension type: essential hypertension Qualified Code(s): I10 - Essential (primary) hypertension Plan: Admitting Physicians to treat (2) Morbid obesity: Status: Acute (3) Anemia: Status: Acute Qualifiers: Anemia type: unspecified type Qualified Code(s): D64.9 - Anemia, unspecified Plan: Diane is Young and will tolerate a lower hemoglobin. Decision to transfuse will be up to the admitting physician. She will need routine laboratory values. We'll plan upper and lower Endoscopy in the near future after bowel prep. Patient may need DINING ROOM SERVER evaluation as well. (4) COVID-19 virus infection: Status: Acute (5) Iron (Fe) deficiency anemia: Status: Acute
[2021-11-21] MEDS: ULTRAM PO PRN (21:18)
[2021-11-22] MEDS: ASCORBIC ACID INJ MULTI-DOSE VIAL 1,500 MG in NS 100 ML IV 100 ML IV SCH ×4 (02:31→20:54)
[2021-11-22] MEDS: CATAPRES TAB 0.2 MG PO SCH ×3 (05:03→21:02)
[2021-11-22] MEDS: ULTRAM PO PRN ×2 (05:05→18:21)
[2021-11-22 05:31] LABS: BASOPHILS # (AUTO) 0.1 X10^3/uL (0.0-0.1); BASOPHILS % (AUTO) 0.6 % (0.2-1.0); EOSINOPHILS # (AUTO) 0.1 x10^3/uL (0.0-0.2); EOSINOPHILS % (AUTO) 1.1 % (0.9-2.9); HEMOGLOBIN 7.6 g/dL (12.0-16.0); LYMPHOCYTES # (AUTO) 2.8 X10^3/uL (1.3-2.9); MEAN CORPUSCULAR HEMOGLOBIN 23.2 pg (27.0-34.0); MEAN CORPUSCULAR HGB CONC 31.6 g/dL (33.0-35.0); MEAN CORPUSCULAR VOLUME 73.3 fL (80.0-100.0); MEAN PLATELET VOLUME 8.8 fL (7.4-11.0); MONOCYTES # (AUTO) 0.4 x10^3/uL (0.3-0.8); MONOCYTES % (AUTO) 4.9 % (0.0-13.0); NEUTROPHILS # (AUTO) 4.8 x10^3/uL (2.2-4.8); NEUTROPHILS % (AUTO) 59.4 % (42.0-75.0); PLATELET COUNT 254 X10^3/uL (150.0-450.0); RED BLOOD COUNT 3.27 X10^6/uL (3.5-5.4); RED CELL DISTRIBUTION WIDTH 34.1 % (11.6-16.5); WHITE BLOOD COUNT 8.2 X10^3/uL (3.6-10.0)
[2021-11-22 05:34] LABS: ALANINE AMINOTRANSFERASE 8 Units/L (12-78); ALBUMIN 2.9 g/dL (3.4-5.0); ALKALINE PHOSPHATASE 50 Units/L (46-116); ASPARTATE AMINO TRANSFERASE 12 Units/L (15-37); BLOOD UREA NITROGEN 7 mg/dL (7-18); CALCIUM 8.5 mg/dL (8.5-10.1); CARBON DIOXIDE 24.4 mmol/L (21-32); CHLORIDE 106 mmol/L (98-107); COR CA(FOR HYPOALB) 9.4 mg/dL (8.5-10.1); CREATININE 0.61 mg/dL (0.55-1.02); SODIUM 141 mmol/L (136-145); TOTAL PROTEIN 7.1 g/dL (6.4-8.2); eGFR NON BLACK RACES > 60 (>60)
[2021-11-22] MEDS: NORMODYNE INJ 20 MG VIAL IV PRN (06:05)
[2021-11-22 06:16] LABS: GIANT PLATELET FEW; HYPOCHROMASIA 1+; PLATELET MORPHOLOGY COMMENT ABNORMAL (NORMAL)
[2021-11-22 06:17] LABS: ANISOCYTOSIS 3+; MICROCYTOSIS 1+; STOMATOCYTES PRESENT
[2021-11-22] MEDS: BROVANA IN SCH ×2 (08:26→20:20)
[2021-11-22] MEDS: PULMICORT NEB TX 0.5 MG NEB SCH ×2 (08:26→20:20)
[2021-11-22] MEDS: VITAMIN A PO SCH (09:09)
[2021-11-22] MEDS: PEPCID TAB 40 MG PO SCH ×2 (09:09→20:55)
[2021-11-22] MEDS: ROCEPHIN 1 GRAM IV PREMIX 1 G/50 ML IV.SOLN. IV SCH (09:09)
[2021-11-22] MEDS: VITAMIN D3 125 mcg (5,000 UNITS) PO SCH (09:10)
[2021-11-22] MEDS: ZESTRIL TAB 40 MG PO SCH ×2 (09:10→20:55)
[2021-11-22] MEDS: ZITHROMAX TAB 250 MG PO SCH (09:10)
[2021-11-22] MEDS: ZINC SULFATE PO SCH ×2 (09:10→20:56)
[2021-11-22] MEDS ORDERED: INFeD or DEXFERRUM 25 MG in NS 100 ML IV 100 ML IV ONE (10:00)
[2021-11-22] MEDS ORDERED: NORVASC TAB 5 MG PO ONE (10:10)
[2021-11-22] MEDS ORDERED: TOPROL XL PO ONE (10:52)
[2021-11-22] MEDS: APRESOLINE TAB 25 MG PO SCH ×3 (10:53→21:02)
[2021-11-22] MEDS: TOPROL XL PO SCH (10:54)
[2021-11-22] MEDS: NORVASC TAB 10 MG PO SCH (10:54)
[2021-11-22] MEDS ORDERED: INFED OR DEXFERRUM IV ONE (11:00)
[2021-11-22] MEDS ORDERED: NS IV ONE (11:00)
[2021-11-22] MEDS: NS 1,000 ML IV 1,000 ML IV SCH (20:54)
--- NOTE | 2021-11-22 21:21 | NOTE.SOAP ---
Soap Note Note for Day of Date of Exam: 11/21/21 Subjective Data Subjective Data: Patient seen by me on 11/21/2020 and lab data reviewed by me from today. Communicated with Dr. Wang by text. Patient yesterday stable with benign abdomen and stable HgB. Objective Data Pulse Rate: 62 O2 Sat by Pulse Oximetry: 98 Objective Data: Behign abdomen , no reported obvious GI bleeding Assessment Assessment: Anemia. Will need evaluation of GI tract Plan Plan: Patient has children at home and will be discharged. Communication with Dr. Wang by text. He will make GI referral for outpatient evaluation .
[2021-11-23] MEDS: ASCORBIC ACID INJ MULTI-DOSE VIAL 1,500 MG in NS 100 ML IV 100 ML IV SCH ×2 (02:43→09:07)
[2021-11-23] MEDS: APRESOLINE TAB 25 MG PO SCH ×2 (05:15→13:16)
[2021-11-23] MEDS: CATAPRES TAB 0.2 MG PO SCH ×2 (05:16→13:17)
[2021-11-23] MEDS: BROVANA IN SCH (08:19)
[2021-11-23] MEDS: PULMICORT NEB TX 0.5 MG NEB SCH (08:19)
[2021-11-23] MEDS ORDERED: TOPROL XL PO ONE (08:22)
[2021-11-23] MEDS: NORVASC TAB 10 MG PO SCH (09:08)
[2021-11-23] MEDS: ROCEPHIN 1 GRAM IV PREMIX 1 G/50 ML IV.SOLN. IV SCH (09:08)
[2021-11-23] MEDS: PEPCID TAB 40 MG PO SCH (09:08)
[2021-11-23] MEDS: TOPROL XL PO SCH (09:08)
[2021-11-23] MEDS: ZESTRIL TAB 40 MG PO SCH (09:09)
[2021-11-23] MEDS: VITAMIN A PO SCH (09:09)
[2021-11-23] MEDS: ZINC SULFATE PO SCH (09:09)
[2021-11-23] MEDS: VITAMIN D3 125 mcg (5,000 UNITS) PO SCH (09:09)
[2021-11-23] MEDS: ZITHROMAX TAB 250 MG PO SCH (09:09)
--- NOTE | 2021-11-23 13:28 | W.DIS.FURT ---
Discharge Plan - Discharge Plan Hospital Course: Admit date:11/19/2021 Discharge date:11/23/2021 DOS: 11/23/2021 Admit diagnosis:Anemia HTN Morbid obesity COVID 19 SAL Discharge diagnosis:(1) Hypertension: (2) Morbid obesity: (3) Anemia: (4) COVID-19 virus infection: (5) Iron (Fe) deficiency anemia: Hospital course: Patient is a 35 year old AAF who was admitted due to acute anemia. Patient was positive for COVID 19. Patient was treated with IV Zithromax and Rocephin. Patient's CXR was clear. No obvious symptoms or signs of COVID infection. Iron level was low. Patient received 2 units of PRBC and iron infusion. Patient symptoms improved. 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 Patient was educated regarding importance of follow up and medications adherence. Patient was hypertensive upon arrival however was not taking home meds as prescribed. Patient's blood pressure was controlled with PO meds. Patient has been discharged home for follow up outpatient. See med rec for discharge meds. Disposition: HOME, SELF-CARE Condition: Stable Health Concerns: Post Hospitalization: new medications and changes needed to prevent readmission or further decline. Pt educated and given instructions on all concerns. Care Plan Goals: Problem: Fluid Volume Deficit Goal: Maintain/Improved Adequate hydration. Instructions: Follow provided instructions. Follow up with primary physician as directed. Contact primary care physician or report to the closest Emergency Room if condition worsens. Plan of Treatment: Continue with present treatment and follow up plan. Pt is to keep follow up appointment as instructed and take medications as ordered. Prescriptions: New amlodipine 10 mg tablet 10 mg PO DAILY PRNQty: 30 RF: 1 Transmission Status: Received by [id number] clonidine HCl 0.2 mg Tablet 0.2 mg PO TID Qty: 90 RF: 1 Transmission Status: Received by [id number] ferrous sulfate [FeroSul] 325 mg (65 mg iron) Tablet 325 mg PO BID Qty: 60 RF: 0 Transmission Status: Received by [id number] hydralazine 50 mg tablet 50 mg PO TID Qty: 90 RF: 3 Transmission Status: Received by [id number] lisinopril 40 mg Tablet 40 mg PO BID Qty: 60 RF: 1 Transmission Status: Received by [id number] metoprolol succinate 100 mg Tablet Extended Release 24 Hr 100 mg PO DAILY Qty: 30 RF: 1 Transmission Status: Received by [id number] No Action clonidine HCl 0.1 mg Tablet 0.1 mg PO BID lisinopril 20 mg Tablet 20 mg PO DAILY - Follow ups/Referrals Follow ups/Referrals: LALITA GENAO [STAFF PHYSICIAN] - 11/30/21 2:30 pm - Instructions Instructions: Anemia, Hypertension, Adult, [id number], Steps to Quit Smoking Forms: Excuse From Work or School, Precautions for COVID, [facility], Patient Portal, Social Distancing Print Language: WELSH
[2021-11-23 13:47] VITALS: BP 148/70
== END 2021-11-23 14:10 | disposition home or self-care (01) | DRG 179 ==
LOC: ER 14:30 → ICU 18:14
PROVIDERS: ADMIT Internal Medicine; ATTEND Internal Medicine
DX: E66.01 Morbid (severe) obesity due to excess calories; D64.89 Other specified anemias; I10 Essential (primary) hypertension; D50.8 Other iron deficiency anemias; R79.89 Other specified abnormal findings of blood chemistry; U07.1 COVID-19